=== PATIENT | female | born 1960 | race Caucasian/White ===

== ENCOUNTER → 2016-07-02 | Outpatient (CLI) | payer BC | LOC: BMCIMAGING 16:47 | PROVIDERS: ATTEND Allergy & Immunology Allergy | DX: J98.4 Other disorders of lung (principal); R05 Cough; R53.83 Other fatigue; R06.02 Shortness of breath ==

== ENCOUNTER → 2017-12-12 | Outpatient (CLI) | payer BC | LOC: FIMAGING 12:05 | PROVIDERS: ATTEND Allergy & Immunology Allergy | DX: R10.31 Right lower quadrant pain (principal); R31.9 Hematuria, unspecified ==

== ENCOUNTER → 2017-12-21 | Outpatient (CLI) | payer BC | LOC: FIMAGING 07:33 | PROVIDERS: ATTEND Physician Assistant Medical | DX: M51.36 Other intervertebral disc degeneration, lumbar region (principal) ==

== ENCOUNTER 2018-05-19 16:18 | Emergency (ER) | payer BC ==
--- NOTE | 2018-05-19 16:36 | EDPHY ---
H & P Time Seen by Provider: 05/19/18 16:33 HPI/ROS: Chief complaint. Jaw pain, higher heart rate, head pain HPI. Dr. Manzano saw this patient and I did not see this patient ROS 10 systems were reviewed and negative with the exception of the elements mentioned in the history of present illness Smoking Status: Never smoked Constitutional: Initial Vital Signs Temperature (C) 37.2 C 05/19/18 16:20 Heart Rate 90 05/19/18 16:20 Respiratory Rate 18 05/19/18 16:20 Blood Pressure 146/86 H 05/19/18 16:20 O2 Sat (%) 98 05/19/18 16:20 O2 Delivery Mode Room Air Allergies/Adverse Reactions: hydrocodone bitartrate [From Vicodin] Allergy (Intermediate, Verified 05/19/18 16:25) Headache when Stopped Taking It Medical Decision Making - Data Points Laboratory Results: Laboratory Results 05/19/18 16:45 05/19/18 16:45 05/19/18 05/19/18 05/19/18 17:09 16:45 16:45 WBC 6.87 10^3/uL 10^3/uL (3.80-9.50) RBC 4.87 10^6/uL 10^6/uL (4.18-5.33) Hgb 14.1 g/dL g/dL (12.6-16.3) Hct 41.7 % % (38.0-47.0) MCV 85.6 fL fL (81.5-99.8) MCH 29.0 pg pg (27.9-34.1) MCHC 33.8 g/dL g/dL (32.4-36.7) RDW 12.1 % % (11.5-15.2) Plt Count 219 10^3/uL 10^3/uL (150-400) MPV 10.7 fL fL (8.7-11.7) Neut % (Auto) 68.4 % % (39.3-74.2) Lymph % (Auto) 20.2 % % (15.0-45.0) Fannin % (Auto) 8.7 % % (4.5-13.0) Eos % (Auto) 1.7 % % (0.6-7.6) Baso % (Auto) 0.9 % % (0.3-1.7) Nucleat RBC Rel Count 0.0 % % (0.0-0.2) Absolute Neuts (auto) 4.69 10^3/uL 10^3/uL (1.70-6.50) Absolute Lymphs (auto) 1.39 10^3/uL 10^3/uL (1.00-3.00) Absolute Monos (auto) 0.60 10^3/uL 10^3/uL (0.30-0.80) Absolute Eos (auto) 0.12 10^3/uL 10^3/uL (0.03-0.40) Absolute Basos (auto) 0.06 10^3/uL 10^3/uL (0.02-0.10) Absolute Nucleated RBC 0.00 10^3/uL 10^3/uL (0-0.01) Immature Gran % 0.1 % % (0.0-1.1) Immature Gran # 0.01 10^3/uL 10^3/uL (0.00-0.10) ESR 6 MM/HR MM/HR (0-30) Sodium 138 mEq/L mEq/L (135-145) Potassium 3.7 mEq/L mEq/L (3.5-5.2) Chloride 102 mEq/L mEq/L (97-110) Carbon Dioxide 26 mEq/l mEq/l (22-31) Anion Gap 10 mEq/L mEq/L (6-14) BUN 21 mg/dL mg/dL (7-23) Creatinine 1.0 mg/dL mg/dL (0.6-1.0) Estimated GFR 57 Glucose 87 mg/dL mg/dL (70-100) Calcium 9.8 mg/dL mg/dL (8.5-10.4) Phosphorus 3.2 mg/dL mg/dL (2.5-4.5) Magnesium 2.2 mg/dL mg/dL (1.6-2.3) POC Troponin I 0.02 ng/mL ng/mL (0.00-0.08) C-React Prot High Sens 0.4 mg/L mg/L Point of Care Test Results: Chemistry 05/19/18 17:09 POC Troponin I 0.02 ng/mL ng/mL (0.00-0.08) Departure - Departure Disposition: Home, Routine, Self-Care Clinical Impression: Palpitations Condition: Fair Instructions: Heart Palpitations (ED) Referrals: Rocío Diaz MD [Primary Care Provider] - 2-3 days, if not improved
--- NOTE | 2018-05-19 16:59 | EDPHY ---
H & P Stated Complaint: memmory issues 2 weeks ago, Jaw pain x 2 weeks, lump on head, rapid hr x yr Time Seen by Provider: 05/19/18 16:33 HPI/ROS: CHIEF COMPLAINT: Variety of complaints HISTORY OF PRESENT ILLNESS: The patient is a 57-year-old female with remote history of breast cancer who states that 2 weeks ago she had what she thought was 20 min of amnesia. 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 She states that this is unusual for her. After 20 min she seemed better. Around the same time she developed some slight left jaw pain. She does have a history of TMJ but it does not seem to have worsened recently. No dental pain. No trauma. She denies chest pain or shortness of breath or back or neck pain. She also states that the for the last year or more she has had intermittent episodes of what feel like an adrenaline centeno. She states that she feels like her heart maybe palpating. She does have a history of SVT, PVCs and PACs but states that it does not feel similar to those. She was having these symptoms today during our EKG which is normal. The she thought that maybe her vitamin B levels were down so she ordered supplementation but it is not yet arrived. She also thought that she felt a small lump on the back of her head that was slightly tender yesterday. She denies trauma. It is not visible or palpable to me. She does admit to having a lot of stress recently and thinks that her symptoms may be partially due to anxiety and stress. She called the urgent care and spoke to Dr. Puente who recommended she come here to the ER. No recent fevers or infections. She states that she is embarrassed to be here because she does not think that this is urgent but that her doctor told her to come here. Severity: Mild Modifying factors: Fluctuating REVIEW OF SYSTEMS: Constitutional: denies: chills, fever, recent illness, recent injury EENTM: denies: blurred vision, double vision, nose congestion Respiratory: denies: cough, shortness of breath Cardiac: See HPI denies: irregular heart rate, lightheadedness, palpitations Gastrointestinal/Abdominal: denies: abdominal pain, diarrhea, nausea, vomiting, blood streaked stools Genitourinary: denies: dysuria, frequency, hematuria, pain Musculoskeletal: denies: joint pain, muscle pain Skin: denies: lesions, rash, jaundice, bruising Neurological: denies: headache, numbness, paresthesia, tingling, dizziness, weakness Hematologic/Lymphatic: denies: blood clots, easy bleeding, easy bruising Immunologic/allergic: denies: HIV/AIDS, transplant 10 systems reviewed and negative except as noted EXAM: GENERAL: Well-appearing, well-nourished and in no acute distress. HEAD: No visible bump on head or tenderness or crepitus. Atraumatic, normocephalic. EYES: Pupils equal round and reactive to light, extraocular movements intact, sclera anicteric, conjunctiva are normal. ENT: Normal mouth and dogs am. No malocclusion. Mild clicking of TMJ. TMs normal, nares patent, oropharynx clear without exudates. Moist mucous membranes. NECK: Normal range of motion, supple without lymphadenopathy or JVD. LUNGS: Breath sounds clear to auscultation bilaterally and equal. No wheezes rales or rhonchi. HEART: Regular rate and rhythm without murmurs, rubs or gallops. ABDOMEN: Soft, nontender, normoactive bowel sounds. No guarding, no rebound. No masses appreciated. BACK: No CVA tenderness, no spinal tenderness, step-offs or deformities EXTREMITIES: Normal range of motion, no pitting or edema. No clubbing or cyanosis. NEUROLOGICAL: Cranial nerves II through XII grossly intact. Normal speech, normal gait. 5/5 strength, normal movement in all extremities, normal sensation , normal reflexes PSYCH: Normal mood, normal affect. SKIN: Warm, dry, normal turgor, no visible rashes or lesions. Source: Patient Exam Limitations: No limitations - Personal History Current Tetanus Diphtheria and Acellular Pertussis (TDAP): Yes - Medical/Surgical History Hx Asthma: No Hx Chronic Respiratory Disease: No Hx Diabetes: No Hx Cardiac Disease: Yes Hx Renal Disease: No Hx Cirrhosis: No Hx Alcoholism: No Hx HIV/AIDS: No Hx Splenectomy or Spleen Trauma: No Other PMH: SVT/pericarditis/breast cancer - Social History Smoking Status: Never smoked Alcohol Use: None Constitutional: Initial Vital Signs Temperature (C) 37.2 C 05/19/18 16:20 Heart Rate 90 05/19/18 16:20 Respiratory Rate 18 05/19/18 16:20 Blood Pressure 146/86 H 05/19/18 16:20 O2 Sat (%) 98 05/19/18 16:20 O2 Delivery Mode Room Air Allergies/Adverse Reactions: hydrocodone bitartrate [From Vicodin] Allergy (Intermediate, Verified 05/19/18 16:25) Headache when Stopped Taking It Medical Decision Making - Diagnostics EKG Interpretation: An EKG obtained and was read and documented in trace view. Please see trace view for full reading and report. Sinus rhythm, no acute ischemic changes similar to previous ED Course/Re-evaluation: The patient lab work is reassuring. She feels much better. She declines further workup or testing and will follow up with her primary doctor's. She understands that I do not have an obvious explanation for her various symptoms. We discussed indications for returning. Differential Diagnosis: Partial list of the Differential diagnosis considered include but were not limited to; arrhythmia, anxiety, electrolyte abnormality and although unlikely based on the history and physical exam, I also considered acute coronary disease , CVA, dissection, aneurysm. I discussed these differential diagnoses and the plan with the patient as well as the usual and expected course. The patient understands that the diagnosis is provisional and that in medicine we are not always correct and that further workup is often warranted. Usual and customary warnings were given. All of the patient's questions were answered. The patient was instructed to return to the emergency department should the symptoms at all worsen or return, otherwise to followup with the physician as we discussed. - Data Points Laboratory Results: Laboratory Results 05/19/18 16:45 05/19/18 16:45 Point of Care Test Results: Chemistry 05/19/18 17:09 POC Troponin I 0.02 ng/mL ng/mL (0.00-0.08) Departure - Departure Disposition: Home, Routine, Self-Care Clinical Impression: Palpitations Condition: Fair Instructions: Heart Palpitations (ED) Referrals: Rocío Diaz MD [Primary Care Provider] - 2-3 days, if not improved
--- NOTE | 2018-05-19 17:02 | CPEKG ---
Test Reason : OPEN Blood Pressure : / mmHG Vent. Rate : 081 BPM Atrial Rate : 081 BPM P-R Int : 141 ms QRS Dur : 097 ms QT Int : 381 ms P-R-T Axes : 076 -41 059 degrees QTc Int : 443 ms Sinus rhythm Left atrial enlargement Left axis deviation Abnormal R-wave progression, early transition Confirmed by Jarred Manzano ([id number]) on 05/19/2018 5:01:18 PM Referred By: Jameson Cervantes Confirmed By:Jarred Manzano
[2018-05-19 17:20] LABS: PLATELET COUNT 219 10^3/uL (150-400)
[2018-05-19 18:12] VITALS: BP 127/83
== END 2018-05-19 18:12 | disposition home or self-care (01) ==
DX: R00.2 Palpitations (principal); R07.0 Pain in throat; R51 Headache
CPT/HCPCS: 84484-ER; 86141-90

== ENCOUNTER → 2018-08-11 | Outpatient (CLI) | payer BC | LOC: BMCIMAGING 16:52 ==